=== PATIENT | female | born 1990 | race Two or more races ===

== ENCOUNTER 2020-05-31 14:37 | Emergency (ER) | payer OTHER ==
--- NOTE | 2020-05-31 15:01 | EDM.PDOC ---
ED HPI GENERAL MEDICAL PROBLEM - General Chief Complaint: SCRIPT EDITOR Problem Stated Complaint: BLEEDING W/ Time Seen by Provider: 05/31/20 14:52 Source of Information: Reports: Patient History Limitations: Reports: No Limitations - History of Present Illness INITIAL COMMENTS - FREE TEXT/NARRATIVE: HISTORY AND PHYSICAL: History of present illness: Patient is a 29-year-old female who presents to the emergency room with complaints of generalized low abdominal cramping and spotting in . Last menstrual period was on 04/25/2020. 2, para 1. She states early this morning she felt a "gush of blood" and then just had spotting. Has used a panty liner since waking up. + sexual intercourse last night. Today she attempted to get into [facility] clinic and when they asked COVID screening questions she did states she had a dry productive cough, which she attributed to her seasonal allergies, not having taken her allergy medication. Dr Morris wanted her swabbed for COVID - recommended that she go to the respiratory clinic for evaluation, as patient states that she was being evaluated for the vaginal bleeding and they recommended she come here to the emergency room. Review of systems: As per history of present illness and below otherwise all systems reviewed and negative. Past medical history: As per history of present illness and as reviewed below otherwise noncontributory. Surgical history: As per history of present illness and as reviewed below otherwise noncontributory. Social history: See social history for further information Family history: As per history of present illness and as reviewed below otherwise noncontributory. Physical exam: General: Well-developed and well-nourished 29-year-old female. Alert and oriented. Nontoxic-appearing and in no acute distress. HEENT: Atraumatic, normocephalic, pupils equal and reactive bilaterally, negative for conjunctival pallor or scleral icterus, mucous membranes moist, TMs normal bilaterally, throat clear, neck supple, nontender, trachea midline. No drooling or trismus noted. No meningeal signs. No hot potato voice noted. Lungs: Clear to auscultation, breath sounds equal bilaterally, chest nontender. Heart: S1S2, regular rate and rhythm without overt murmur Abdomen: Soft, nondistended, nontender. Negative for masses or hepatosplenomegaly. Negative for costovertebral tenderness. Pelvis: Stable nontender. Skin: Intact, warm, dry. No lesions or rashes noted. Extremities: Atraumatic, moves all extremities per self without difficulty or deficits, negative for cords or calf pain. Neurovascular unremarkable. Neuro: Awake, alert, oriented. Cranial nerves II through XII unremarkable. Cerebellum unremarkable. Motor and sensory unremarkable throughout. Exam nonfocal. Notes: Ultrasound shows no intrauterine gestational sac. Pelvic ultrasound appears within normal limits. +COVID results. I did speak with Dr. Morris, her SCRIPT EDITOR and the SCRIPT EDITOR on-call. She is aware of all diagnostics. She would like me to order an outpatient lab for quantitative hCG. She states that the clinic will call her and these results and treat appropriately. This information was shared with the patient. Her vital signs remained stable. We discussed signs and symptoms that would prompt her to return to the emergency room. Follow-up and supportive care measures were reviewed and discussed. Voices understanding and is agreeable to plan of care. Denies any further questions or concerns at this time. Diagnostics: CBC, CMP, quantitative hCG, OB ultrasound, Rh, COVID Therapeutics: None Prescription: Patient quantitative hCG Impression: Threatened miscarriage first trimester COVID-19 Plan: 1. Your COVID-19 screening is positive. That means you do have the coronavirus and are considered contagious. Your vital signs and oxygen saturation are well enough that you were able to monitor your symptoms at home. Continue to monitor for trouble breathing, new confusion or inability to arouse, bluish lips or face or any of the other symptoms we discussed -if this occurs please return to the emergency room. 2. Please self quarantine over the next 2 weeks. Inform any persons that you have been in contact with since you started becoming symptomatic that you have tested positive; they should be made aware and take the appropriate steps as ne eded. 3. Take the medications as we prescribed as discussed. 4. You may take Tylenol as needed for pain and fever management. 5. As you are very early in we were unable to see any material in the uterus. Your quant is 93. A repeat quant needs to be done to see if this number is going up or down. In a healthy this number should double every day. You will be given a outpatient lab order to have this done on Thursday. Please present outpatient lab wearing your full mask and staying 6 feet away from people. Pelvic rest until cleared by your OBGYN (no tampons, sex, etc...) 6. Call and talk with Dr. Morris, their office will be calling you on Thursday to discuss your quantitative hCG and see if any further action needs to be taken. 7. The [facility] will be calling you and following up with you. The [place] [facility] Hotline phone number , They are open Thursday - Thursday 7am - 7pm. Follow up with your primary care provider for re-evaluation and re-testing after the 2 week quarantine and discuss when you should be seen. Definitive disposition and diagnosis as appropriate pending reevaluation and review of above. abdomen Pain Score (Numeric/FACES): 1 - Related Data Allergies Allergy/AdvReac Type Severity Reaction Status Date / Time No Known Allergies Allergy Verified 05/31/20 14:56 Home Meds: Home Meds . [No Known Home Meds] 05/31/20 [History] ED ROS GENERAL - Review of Systems Review Of Systems: Comprehensive ROS is negative, except as noted in HPI. ED EXAM - Physical Exam Exam: See Below (See dictation) Course - Vital Signs Last Recorded V/S: Last Vital Signs Temp 98.4 F 05/31/20 14:48 Pulse 77 05/31/20 14:48 Resp 17 05/31/20 14:48 BP 118/79 05/31/20 14:48 Pulse Ox 98 05/31/20 14:48 - Orders/Labs/Meds Orders: Active Orders 24 hr Category Date Time Status Isolation [COMM] Stat Oth 05/31/20 14:40 Active Labs: Laboratory Tests 05/31/20 05/31/20 05/31/20 Range/Units 14:58 16:15 16:29 WBC 4.23 (4.0-11.0) K/uL RBC 4.20 L (4.30-5.90) M/uL Hgb 13.0 (12.0-16.0) g/dL Hct 38.2 (36.0-46.0) % MCV 91.0 (80.0-98.0) fL MCH 31.0 (27.0-32.0) pg MCHC 34.0 (31.0-37.0) g/dL RDW Std Deviation 42.8 (28.0-62.0) fl RDW Coeff of Paula 13 (11.0-15.0) % Plt Count 242 (150-400) K/uL MPV 9.80 (7.40-12.00) fL Neut % (Auto) 40.7 L (48.0-80.0) % Lymph % (Auto) 51.3 H (16.0-40.0) % Trinity % (Auto) 7.6 (0.0-15.0) % Eos % (Auto) 0.2 (0.0-7.0) % Baso % (Auto) 0.2 (0.0-1.5) % Neut # (Auto) 1.7 (1.4-5.7) K/uL Lymph # (Auto) 2.2 (0.6-2.4) K/uL Trinity # (Auto) 0.3 (0.0-0.8) K/uL Eos # (Auto) 0.0 (0.0-0.7) K/uL Baso # (Auto) 0.0 (0.0-0.1) K/uL Nucleated RBC % 0.0 /100WBC Nucleated RBCs # 0 K/uL Sodium (136-145) mmol/L Potassium (3.5-5.1) mmol/L Chloride (98-107) mmol/L Carbon Dioxide (21.0-32.0) mmol/L BUN (7.0-18.0) mg/dL Creatinine (0.6-1.0) mg/dL Est Cr Clr Drug Dosing mL/min Estimated GFR (MDRD) ml/min Glucose (74-106) mg/dL Calcium (8.5-10.1) mg/dL Total Bilirubin (0.2-1.0) mg/dL AST (15-37) IU/L ALT (14-63) IU/L Alkaline Phosphatase (46-116) U/L Total Protein (6.4-8.2) g/dL Albumin (3.4-5.0) g/dL Globulin (2.6-4.0) g/dL Albumin/Globulin Ratio (0.9-1.6) HCG, Quant mIU/mL Urine Color YELLOW Urine Appearance CLEAR Urine pH 6.0 (5.0-8.0) Ur Specific [place] 1.015 (1.001-1.035) Urine Protein NEGATIVE (NEGATIVE) mg/dL Urine Glucose (UA) NEGATIVE (NEGATIVE) mg/dL Urine Ketones NEGATIVE (NEGATIVE) mg/dL Urine Occult Blood LARGE H (NEGATIVE) Urine Nitrite NEGATIVE (NEGATIVE) Urine Bilirubin NEGATIVE (NEGATIVE) Urine Urobilinogen 0.2 (<2.0) EU/dL Ur Leukocyte Esterase NEGATIVE (NEGATIVE) Urine RBC 4-8 (0-2/HPF) Urine WBC 0-1 (0-5/HPF) Ur Epithelial Cells FEW (NONE-FEW) Urine Bacteria FEW (NEGATIVE) COVID-19 (FENG) POSITIVE H (NEGATIVE) Blood Type 05/31/20 05/31/20 Range/Units 16:29 16:29 WBC (4.0-11.0) K/uL RBC (4.30-5.90) M/uL Hgb (12.0-16.0) g/dL Hct (36.0-46.0) % MCV (80.0-98.0) fL MCH (27.0-32.0) pg MCHC (31.0-37.0) g/dL RDW Std Deviation (28.0-62.0) fl RDW Coeff of Paula (11.0-15.0) % Plt Count (150-400) K/uL MPV (7.40-12.00) fL Neut % (Auto) (48.0-80.0) % Lymph % (Auto) (16.0-40.0) % Trinity % (Auto) (0.0-15.0) % Eos % (Auto) (0.0-7.0) % Baso % (Auto) (0.0-1.5) % Neut # (Auto) (1.4-5.7) K/uL Lymph # (Auto) (0.6-2.4) K/uL Trinity # (Auto) (0.0-0.8) K/uL Eos # (Auto) (0.0-0.7) K/uL Baso # (Auto) (0.0-0.1) K/uL Nucleated RBC % /100WBC Nucleated RBCs # K/uL Sodium 136 (136-145) mmol/L Potassium 4.4 (3.5-5.1) mmol/L Chloride 102 (98-107) mmol/L Carbon Dioxide 25.8 (21.0-32.0) mmol/L BUN 11 (7.0-18.0) mg/dL Creatinine 0.6 (0.6-1.0) mg/dL Est Cr Clr Drug Dosing 104.40 mL/min Estimated GFR (MDRD) > 60.0 ml/min Glucose 88 (74-106) mg/dL Calcium 8.4 L (8.5-10.1) mg/dL Total Bilirubin 0.2 (0.2-1.0) mg/dL AST 33 (15-37) IU/L ALT 60 (14-63) IU/L Alkaline Phosphatase 52 (46-116) U/L Total Protein 7.8 (6.4-8.2) g/dL Albumin 4.0 (3.4-5.0) g/dL Globulin 3.8 (2.6-4.0) g/dL Albumin/Globulin Ratio 1.1 (0.9-1.6) HCG, Quant 93.0 mIU/mL Urine Color Urine Appearance Urine pH (5.0-8.0) Ur Specific [place] (1.001-1.035) Urine Protein (NEGATIVE) mg/dL Urine Glucose (UA) (NEGATIVE) mg/dL Urine Ketones (NEGATIVE) mg/dL Urine Occult Blood (NEGATIVE) Urine Nitrite (NEGATIVE) Urine Bilirubin (NEGATIVE) Urine Urobilinogen (<2.0) EU/dL Ur Leukocyte Esterase (NEGATIVE) Urine RBC (0-2/HPF) Urine WBC (0-5/HPF) Ur Epithelial Cells (NONE-FEW) Urine Bacteria (NEGATIVE) COVID-19 (FENG) (NEGATIVE) Blood Type A POSITIVE Departure - Departure Time of Disposition: 17:24 Disposition: Home, Self-Care 01 Clinical Impression: Threatened miscarriage in early , COVID-19 - Discharge Information Instructions: COVID-19 Frequently Asked Questions, Vaginal Bleeding During , First Trimester, [id number] Referrals: PCP,None [Primary Care Provider] - Forms: ED Department Discharge Additional Instructions: The following information is given to patients seen in the emergency department who are being discharged to home. This information is to outline your options for follow-up care. We provide all patients seen in our emergency department with a follow-up referral. The need for follow-up, as well as the timing and circumstances, are variable depending upon the specifics of your emergency department visit. If you don't have a primary care physician on staff, we will provide you with a referral. We always advise you to contact your personal physician following an emergency department visit to inform them of the circumstance of the visit and for follow-up with them and/or the need for any referrals to a consulting specialist. The emergency department will also refer you to a specialist when appropriate. This referral assures that you have the opportunity for follow-up care with a specialist. All of these measure are taken in an effort to provide you with optimal care, which includes your follow-up. Under all circumstances we always encourage you to contact your private physician who remains a resource for coordinating your care. When calling for follow-up care, please make the office aware that this follow-up is from your recent emergency room visit. If for any reason you are refused follow-up, please contact the [facility] Emergency Department at and asked to speak to the emergency department charge nurse. [facility] Primary [facility] [address] [place] [id number] [place] [address] Thank you for choosing the [facility] emergency department in [place] for your medical needs today. It was a pleasure caring for you. You were seen in the emergency department for vaginal bleeding and . 1. Your COVID-19 screening is positive. That means you do have the coronavirus and are considered contagious. Your vital signs and oxygen saturation are well enough that you were able to monitor your symptoms at home. Continue to monitor for trouble breathing, new confusion or inability to arouse, bluish lips or face or any of the other symptoms we discussed -if this occurs please return to the emergency room. 2. Please self quarantine over the next 2 weeks. Inform any persons that you have been in contact with since you started becoming symptomatic that you have tested positive; they should be made aware and take the appropriate steps as needed. 3. Take the medications as we prescribed as discussed. 4. You may take Tylenol as needed for pain and fever management. 5. As you are very early in we were unable to see any material in the uterus. Your quant is 93. A repeat quant needs to be done to see if this number is going up or down. In a healthy this number should double every day. You will be given a outpatient lab order to have drawn on Thursday. Please present outpatient lab wearing your full mask and staying 6 feet away from people. Pelvic rest until cleared by your OBGYN (no tampons, sex, etc...) 6. I did call and talk with Dr. Morris, their office will be calling you on Thursday to discuss your quantitative hCG and see if any further action needs to be taken. 7. The [facility] will be calling you and following up with you. The [place] [facility] Hotline phone number , They are open Thursday - Thursday 7am - 7pm. Follow up with your primary care provider for re-evaluation and re-testing after the 2 week quarantine and discuss when you should be seen. Sepsis Event Note (ED) - Evaluation Sepsis Screening Result: No Definite Risk - Focused Exam Vital Signs: Vital Signs Temp Pulse Resp BP Pulse Ox 05/31/20 14:48 98.4 F 77 17 118/79 98
--- NOTE | 2020-05-31 16:30 | US ---
1st trimester obstetrical ultrasound: Multiple real-time images were obtained transvaginally. Uterus is anteverted. No intrauterine gestational sac is seen. Endometrial thickness is normal at 7 mm. Follicles are seen within the ovaries. No larger cyst or solid abnormality is appreciated. Minimal free fluid is seen which is believed to be physiologic. Impression: 1. No intrauterine gestational sac. 2. Pelvic ultrasound portion of the exam appears normal. Note: If patient has positive test, findings represent either too early to visualize, miscarriage or less likely nonvisualized ectopic . Diagnostic code #2 This report was dictated in MDT
[2020-05-31 17:13] LABS: BLOOD UREA NITROGEN,BUN 11 mg/dL (7.0-18.0); CARBON DIOXIDE,CO2 25.8 mmol/L (21.0-32.0); CHLORIDE,CL 102 mmol/L (98-107); GLUCOSE RANDOM 88 mg/dL (74-106); POTASSIUM,K 4.4 mmol/L (3.5-5.1); SODIUM,NA 136 mmol/L (136-145)
== END 2020-05-31 17:50 | disposition home or self-care (01) ==
LOC: MW.ED 14:37
DX: O20.0 Threatened abortion (principal); O98.511 Other viral diseases complicating pregnancy, first trimester; U07.1 COVID-19
CPT/HCPCS: 36415; 76801; 76801-26; 80053; 81001; 84702; 85025; 86900; 86901; 99282; 99284-25; U0002